=== PATIENT | female | born 1960 | race African-American/Black ===

== ENCOUNTER → 2017-04-15 | Outpatient (CLI) | payer MEDICARE, OTHER | END | disposition home or self-care (01) | LOC: RT 13:30 | DX: R56.9 Unspecified convulsions (principal) | CPT/HCPCS: 95816 ==

== ENCOUNTER → 2017-06-24 | Outpatient (CLI) | payer MEDICARE | END | disposition home or self-care (01) | LOC: KCIC 13:40 | DX: M17.11 Unilateral primary osteoarthritis, right knee (principal); G89.29 Other chronic pain | CPT/HCPCS: 73562 ==

== ENCOUNTER 2018-10-15 09:31 | Emergency (ER) | payer MEDICARE ==
[~2018-10-15] VITALS: Ht 170.2 cm; Wt 95.3 kg
[~2018-10-15 09:31] MED LIST: AMIT150T PO; AMLO10TA8 PO; ASCO500T2 PO; ATOR20TA58 PO; BISA5TAB4 PO; Bisacodyl PR; CYCL10TA2 PO; DOCU-109 PO; HYDR-3164 PO; INSU100I17 SQ; INSU100I27 SQ; INSU100V31 SQ; INSU100V8 SQ; LEVE500T56 PO; LEVO500T59 PO; LIDO700A4 TD; LISI-130 PO; LOVA40TA2 PO; METF10007 PO; ONDA4TAB7 IV; OXYC-411 PO; OXYC10TA46 PO; OXYC5TAB4 PO; SENN-80 PO; TRAZ-86 PO; WARF-31 PO; WARF2TAB96 PO
[2018-10-15 09:33] VITALS: BP 145/81
--- NOTE | 2018-10-15 10:32 | RAD ---
Indication: Fall. Right hip pain TECHNIQUE: 2 views of the right hip COMPARISON: None Findings/ impression: No acute fracture or dislocation. No significant evidence of arthritic process. Electronically signed by: Mariano Robbins DO (10/15/2018 10:29 AM) [facility]
--- NOTE | 2018-10-15 10:33 | RAD ---
Indication:Fall. Right knee pain. TECHNIQUE: 3 views of the right knee COMPARISON:None FINDINGS: No acute fracture or dislocation. No joint effusion. Moderate tricompartmental osteoarthritis. Electronically signed by: Mariano Robbins DO (10/15/2018 10:30 AM) [facility]
--- NOTE | 2018-10-15 10:53 | PHYS DOC ---
Past Medical History Past Medical History: Depression, Diabetes-Type II, Seizure, Other Additional Past Medical Histor: PULMONARY EMBOLISM, chronic back pain, "mental problems" Past Surgical History: Other Additional Past Surgical Histo: spinal fusion Alcohol Use: None Drug Use: None Adult General Chief Complaint Chief Complaint: LOWER EXT PAIN HPI HPI 57 y/o female presents to ER for complaints of right hip and right knee pain following a fall 10 days ago. Pt states she slipped and fell down approximately 12 steps 10 days ago which were carpeted. She denies any loss of consciousness or striking her head. Patient denies any head, neck, or back pain. Patient states she has had right side hip pain and right knee pain since the fall. She has been able to walk without use of cane or walker. She reports she took ibuprofen 800 mg yesterday with some improvement in pain denies any [id number] medications today. Review of Systems Review of Systems Constitutional: Denies fatigue Eyes: Denies change in visual acuity or eye pain [] HENT: Denies head/neck pain Respiratory: Denies cough or shortness of breath [] Cardiovascular: No additional information not addressed in HPI [] GI: Denies abdominal pain, nausea, vomiting : Denies urinary sxs Musculoskeletal: Denies back/neck pain. Reports rt hip/knee pain- denies inability to walk but does have increased pain with walking Integument: Denies bruising/open wounds Neurologic: Denies headache, focal weakness or sensory changes [] All other systems were reviewed and found to be within normal limits, except as documented in this note. Allergies Allergies Allergies Coded Allergies Type Severity Reaction Last Updated Verified No Known Drug Allergies 05/09/15 No Physical Exam Physical Exam Constitutional: Well developed, well nourished, no acute distress, non-toxic appearance. [] HENT: Normocephalic, atraumatic, oropharynx moist, nose normal. [] Eyes: Pupils equal, conjunctiva normal, no discharge. [] Neck: Normal range of motion, no tenderness mid line cspine, supple, no stridor. [] Cardiovascular: Heart rate regular rhythm, no murmur [] Lungs & Thorax: Bilateral breath sounds clear to auscultation- resp. equal/nonlabored Abdomen: Bowel sounds normal, soft, no tenderness Skin: Warm, dry, no erythema, no rash. [] Back: No tenderness mid line spine, no CVA tenderness. [] Extremities: Pelvis stable/nontender. No cyanosis, no clubbing, ROM intact, no edema. 2+ bilat dorsalis pedis/posterior tibial. Tender on palp. anterior rt knee with no edema/eccymosis. Tender rt lateral hip- no palp. deformity Neurologic: Alert and oriented X 3, normal motor function, normal sensory function, no focal deficits noted. [] Psychologic: Affect normal, judgement normal, mood normal. [] Current Patient Data Vital Signs Vital Signs Date Time Temp Pulse Resp B/P (MAP) Pulse Ox O2 Delivery O2 Flow Rate FiO2 10/15/18 09:33 98.1 100 16 145/81 (102) 98 Room Air 98.1 EKG EKG [] Radiology/Procedures Radiology/Procedures PROCEDURE: KNEE RIGHT 3V Indication:Fall. Right knee pain. TECHNIQUE: 3 views of the right knee COMPARISON:None FINDINGS: No acute fracture or dislocation. No joint effusion. Moderate tricompartmental osteoarthritis. Electronically signed by: Raheel Borges DO (10/15/2018 10:30 AM) [facility] DICTATED and SIGNED BY: RAHEEL BORGES DO DATE: 10/15/18 1030 PROCEDURE: HIP RIGHT 2 VIEW Indication: Fall. Right hip pain TECHNIQUE: 2 views of the right hip COMPARISON: None Findings/ impression: No acute fracture or dislocation. No significant evidence of arthritic process. Electronically signed by: Raheel Borges DO (10/15/2018 10:29 AM) [facility] DICTATED and SIGNED BY: RAHEEL BORGES DO DATE: 10/15/18 1029 Course & Med Decision Making Course & Med Decision Making Pertinent Imaging studies reviewed. (See chart for details) Patient was evaluated in the ER following a mechanical fall 10 days ago which caused right hip and right knee pain since the fall. Pt had x-rays obtained when no acute findings for fx/dislocation. Discussed x-ray results with patient and findings of degenerative osteoarthritis. Patient was placed in Lamine wrap with her reporting pain improved following wrap application. She remains PMS intact in bilateral lower extremities with steady unassisted gait. Discussed home discharge plan with orthopedic referral information BM provided on paperwork. Patient advised on need to call and schedule appointment for reevaluation and further care.Tylenol and/or ibuprofen as needed for pain. RICE acronym information will be provided on discharge paperwork. Patient provided on signs and symptoms to return to ER for and discharge instructions were discussed. Dragon Disclaimer Dragon Disclaimer This electronic medical record was generated, in whole or in part, using a voice recognition dictation system. Departure Departure Impression: Primary Impression: Knee pain, right Additional Impression: Hip pain, right Disposition: 01 HOME, SELF-CARE Condition: STABLE Referrals: NO PCP (PCP) GERI ZAMUDIO MD Patient Instructions: Fall Prevention and Home Safety, Hip Pain, Knee Pain, Knee Wraps (Elastic Bandage) and RICE Additional Instructions: Wear Lamine wrap to right knee for support to improve pain and stability while walking. If symptoms persist follow-up with an orthopedic doctor for reevaluation and further care. Tylenol and/or ibuprofen as needed for pain as directed on container. If needed use a walker or cane for stability to prevent further falls. Problem Qualifiers JON MONTES DE OCA APRN Oct 15, 2018 10:53
== END 2018-10-15 10:58 | disposition home or self-care (01) ==
LOC: ER 09:31
DX: M25.561 Pain in right knee (principal); M25.551 Pain in right hip; G89.11 Acute pain due to trauma; E11.9 Type 2 diabetes mellitus without complications; G89.29 Other chronic pain; W10.8XXA Fall (on) (from) other stairs and steps, initial encounter; Y93.89 Activity, other specified; Y92.89 Other specified places as the place of occurrence of the external cause; Y99.8 Other external cause status
CPT/HCPCS: 73502; 73562; 99284

== ENCOUNTER 2019-02-12 16:12 | Emergency (ER) | payer MEDICARE ==
[~2019-02-12] VITALS: Ht 172.7 cm; Wt 86.2 kg
--- NOTE | 2019-02-12 16:54 | RAD ---
CT HEAD WO CONTRAST Date: 02/12/2019 4:24 PM Clinical Indication: Comparison: 08/28/2014. Technique: 5 mm axial tomographic images were obtained of the head without contrast. These were viewed on brain and bone windows. One or more of the following dose reduction techniques were utilized: Automated exposure control (AEC), Adjustment of mA and/or kV according to patient size, Use of iterative reconstruction technique such as ASiR, CT scan done according to ALARA and image gently/image wisely Findings: The brain parenchyma is normal in attenuation. No intra- or extra-axial mass or fluid collection. No acute hemorrhage. The ventricles are normal in size, shape, and morphology. The schmitt-white matter junction is normal. The subarachnoid cisterns are patent. The visualized paranasal sinuses are normal. The visualized portions of the orbits and globes are normal. The mastoid air cells are clear. The summer associate topogram shows no lytic lesion or fracture. Impression: No acute intracranial process. Electronically signed by: Erwin Medrano MD (02/12/2019 4:51 PM) [facility]
[2019-02-12 17:14] LABS: BASO % 1 % (0-3); EOS # 0.1 x10^3/uL (0.0-0.7); EOS % 2 % (0-3); HEMATOCRIT 42.8 % (36.0-47.0); HEMOGLOBIN 14.3 g/dL (12.0-15.5); LYMPH # 1.4 x10^3/uL (1.0-4.8); LYMPH % 32 % (24-48); MEAN CORPUSCULAR HEMOGLOBIN 30 pg (25-35); MEAN CORPUSCULAR HGB CONC 34 g/dL (31-37); MEAN CORPUSCULAR VOLUME 90 fL (79-100); MONO # 0.4 x10^3/uL (0.0-1.1); MONO % 8 % (0-9); NEUT # 2.7 x10^3/uL (1.8-7.7); NEUT % 58 % (31-73); PLATELET COUNT 169 x10^3/uL (140-400); RED BLOOD COUNT 4.75 x10^6/uL (3.50-5.40); RED CELL DISTRIBUTION WIDTH 13.1 % (11.5-14.5); WHITE BLOOD COUNT 4.6 x10^3/uL (4.0-11.0)
[2019-02-12] MEDS: levETIRAcetam 1,000 MG in IV DEXTROSE 5% 100ML 100 ML IV ONE (17:18)
[2019-02-12] MEDS: IV NORMAL SALINE 500ML BAG 500 ML IV ONE (17:19)
[2019-02-12 17:25] LABS: CALCIUM 9.7 mg/dL (8.5-10.1); CREATININE 1.5 mg/dL (0.6-1.0); GFR 43.5; POTASSIUM 4.7 mmol/L (3.5-5.1)
--- NOTE | 2019-02-12 17:28 | PHYS DOC ---
Past Medical History Past Medical History: Depression, Diabetes-Type II, Seizure, Other Additional Past Medical Histor: PULMONARY EMBOLISM, chronic back pain, "mental problems" Past Surgical History: Other Additional Past Surgical Histo: spinal fusion Alcohol Use: None Drug Use: None Adult General Chief Complaint Chief Complaint: SEIZURE HPI HPI Patient is a 58 year old female with history of seizures, diabetes mellitus, depression and mental problem who presents via EMS with complaint of seizure. Patient states she was at [facility] and had a syncopal episode and had another syncopal episode was 1 month ago. Patient states she does not remember what happened to her today and did not eat or drink anything today. EMS reported the patient was at [facility] and had a witnessed seizure that last about 30-60 seconds without head injury. Patient later remembered that she has seizure and didn't take seizure medication for a while because of financial problems. Patient denie s smoking cigarettes and using drugs and drinking alcohol. Review of Systems Review of Systems Constitutional: Denies fever or chills [] Eyes: Denies change in visual acuity, redness, or eye pain [] HENT: Denies nasal congestion or sore throat [] Respiratory: Denies cough or shortness of breath [] Cardiovascular: No additional information not addressed in HPI [] GI: Denies abdominal pain, nausea, vomiting, bloody stools or diarrhea [] : Denies dysuria or hematuria [] Musculoskeletal: Denies back pain or joint pain [] Integument: Denies rash or skin lesions [] Neurologic: Denies headache, focal weakness or sensory changes [] Endocrine: Denies polyuria or polydipsia [] All other systems were reviewed and found to be within normal limits, except as documented in this note. Current Medications Current Medications Current Medications Medications (Trade) Dose Ordered Sig/[facility] Start Time Stop Time Status Last Admin Dose Admin Levetiracetam 1000 mg/Dextrose 110 ml @ 440 mls/hr 1X ONCE 02/12/19 17:15 02/12/19 17:29 DC 02/12/19 17:18 440 MLS/HR Sodium Chloride 500 ml @ 500 mls/hr 1X ONCE 02/12/19 17:15 02/12/19 18:14 02/12/19 17:19 500 MLS/HR Allergies Allergies Allergies Coded Allergies Type Severity Reaction Last Updated Verified No Known Drug Allergies 2/12/16 No Physical Exam Physical Exam Constitutional: Well nourished, no acute distress, non-toxic appearance. [] HENT: Normocephalic, atraumatic, bilateral external ears normal, oropharynx moist, no oral exudates, nose normal. [] Eyes: PERRLA, EOMI, conjunctiva normal, no discharge. [] Neck: Normal range of motion, no tenderness, supple, no stridor. [] Cardiovascular:Heart rate regular rhythm, no murmur [] Lungs & Thorax: Bilateral breath sounds clear to auscultation [] Abdomen: Bowel sounds normal, soft, no tenderness, no masses, no pulsatile masses. [] Skin: Warm, dry, no erythema, no rash. [] Back: No tenderness, no CVA tenderness. [] Extremities: No tenderness, no cyanosis, no clubbing, ROM intact, no edema. [] Neurologic: Alert and oriented X 2, in postictal condition, normal motor function, normal sensory function, no focal deficits noted. [] Psychologic: Affect normal, unable to evaluate Current Patient Data Vital Signs Vital Signs Date Time Temp Pulse Resp B/P (MAP) Pulse Ox O2 Delivery O2 Flow Rate FiO2 02/12/19 16:14 98.1 107 14 152/80 (104) 94 Room Air 98.1 Lab Values Laboratory Tests Test 02/12/19 16:28 02/12/19 17:00 Glucose (Fingerstick) 252 mg/dL (70-99) H White Blood Count 4.6 x10^3/uL (4.0-11.0) Red Blood Count 4.75 x10^6/uL (3.50-5.40) Hemoglobin 14.3 g/dL (12.0-15.5) Hematocrit 42.8 % (36.0-47.0) Mean Corpuscular Volume 90 fL (79-100) Mean Corpuscular Hemoglobin 30 pg (25-35) Mean Corpuscular Hemoglobin Concent 34 g/dL (31-37) Red Cell Distribution Width 13.1 % (11.5-14.5) Platelet Count 169 x10^3/uL (140-400) Neutrophils (%) (Auto) 58 % (31-73) Lymphocytes (%) (Auto) 32 % (24-48) Monocytes (%) (Auto) 8 % (0-9) Eosinophils (%) (Auto) 2 % (0-3) Basophils (%) (Auto) 1 % (0-3) Neutrophils # (Auto) 2.7 x10^3/uL (1.8-7.7) Lymphocytes # (Auto) 1.4 x10^3/uL (1.0-4.8) Monocytes # (Auto) 0.4 x10^3/uL (0.0-1.1) Eosinophils # (Auto) 0.1 x10^3/uL (0.0-0.7) Basophils # (Auto) 0.0 x10^3/uL (0.0-0.2) Sodium Level 138 mmol/L (136-145) Potassium Level 4.7 mmol/L (3.5-5.1) Chloride Level 99 mmol/L (98-107) Carbon Dioxide Level 27 mmol/L (21-32) Anion Gap 12 (6-14) Blood Urea Nitrogen 17 mg/dL (7-20) Creatinine 1.5 mg/dL (0.6-1.0) H Estimated GFR (Cockcroft-Gault) 43.5 BUN/Creatinine Ratio 11 (6-20) Glucose Level 265 mg/dL (70-99) H Calcium Level 9.7 mg/dL (8.5-10.1) Total Bilirubin 0.3 mg/dL (0.2-1.0) Aspartate Amino Transferase (AST) 15 U/L (15-37) Alanine Aminotransferase (ALT) 22 U/L (14-59) Alkaline Phosphatase 71 U/L (46-116) Total Protein 8.3 g/dL (6.4-8.2) H Albumin 3.9 g/dL (3.4-5.0) Albumin/Globulin Ratio 0.9 (1.0-1.7) L Laboratory Tests 02/12/19 17:00 Laboratory Tests 02/12/19 17:00 EKG EKG EKG interpreted by me. EKG at 1628 showed sinus tachycardia at rate of 105,leftward axis, LVH, no acute ST and T-wave elevation. Radiology/Procedures Radiology/Procedures [][facility] [address] [place], [place] [id number] IMAGING REPORT Signed PATIENT: CADENCE CHO ACCOUNT: [id number] : 1960 LOCATION: ER AGE: 58 SEX: F EXAM STATUS: REG ER ORD. PHYSICIAN: CARLENE QUINTERO MD REASON: seizure and fall PROCEDURE: CT HEAD WO CONTRAST CT HEAD WO CONTRAST Date: 02/12/2019 4:24 PM Clinical Indication: Comparison: 08/28/2014. Technique: 5 mm axial tomographic images were obtained of the head without contrast. These were viewed on brain and bone windows. One or more of the following dose reduction techniques were utilized: Automated exposure control (AEC), Adjustment of mA and/or kV according to patient size, Use of iterative reconstruction technique such as ASiR, CT scan done according to ALARA and image gently/image wisely Findings: The brain parenchyma is normal in attenuation. No intra- or extra-axial mass or fluid collection. No acute hemorrhage. The ventricles are normal in size, shape, and morphology. The schmitt-white matter junction is normal. The subarachnoid cisterns are patent. The visualized paranasal sinuses are normal. The visualized portions of the orbits and globes are normal. The mastoid air cells are clear. The wood veneer taper topogram shows no lytic lesion or fracture. Impression: No acute intracranial process. Electronically signed by: Tray Medrano MD (02/12/2019 4:51 PM) [facility] DICTATED and SIGNED BY: TRAY MEDRANO MD DATE: 02/12/19 165 Course & Med Decision Making Course & Med Decision Making Pertinent Labs and Imaging studies reviewed. (See chart for details) Evaluation of patient in ER showed 58-year-old female patient with history of noncompliance with seizure treatment is in by EMS because of seizure. Patient was in postictal condition and gradually became alert and oriented. Patient had unremarkable exam and labs except for elevation of blood sugar and crusty. Patient treated with IV Keppra prescription for Keppra was given and was advised to follow-up with her physician. I've spoken with the patient and/or caregivers. I've explained the patient's condition, diagnosis and treatment plan based on information available to me at this time. I've answered the patient's and/or caregivers questions and addressed any concerns. The patient and/or caregivers have a good understanding the patient's diagnosis, condition and treatment plan as can be expected at this point. Vital signs have been stabilized. The patient's condition is stable for discharge from the emergency department. The patient will pursue further outpatient evaluation with her primary care provider or other designated consulting physician as outlined in the discharge instructions. Patient and/or caregivers are agreeable to this plan of care and follow-up instructions have been explained in detail. The patient and/or caregivers have received these instructions in written format and expressed understanding of these discharge instructions. The patient and her caregivers are aware that if any significant change in condition or worsening of symptoms should prompt him to immediately return to this of the closest emergency department. If an emergent department is not readily available I would encourage him to call 911. Dragon Disclaimer Dragon Disclaimer This electronic medical record was generated, in whole or in part, using a voice recognition dictation system. Departure Departure Impression: Primary Impression: Seizure Additional Impressions: Noncompliance Uncontrolled diabetes mellitus Elevated serum creatinine Disposition: HOME, SELF-CARE Condition: IMPROVED Referrals: NO PCP (PCP) Patient Instructions: Seizure, Adult Additional Instructions: Drink plenty of liquids Follow-up with your primary care physician in 2-3 days guarding seizure treatment Return to ER if not getting better Scripts Levetiracetam (KEPPRA) 500 Mg Tablet 1 TAB PO BID for 30 Days, #60 TAB 0 Refills Prov: CARLENE QUINTERO MD 02/12/19 Problem Qualifiers Additional Impressions: Uncontrolled diabetes mellitus Diabetes mellitus type: other specified (including MAG) Glycemic state: w ith hyperglycemia Qualified Codes: E13.65 - Other specified diabetes mellitus with hyperglycemia CARLENE QUINTERO MD Feb 12, 2019 17:28
[2019-02-12 17:30] LABS: ALBUMIN 3.9 g/dL (3.4-5.0); ALBUMIN/GLOBULIN RATIO 0.9 (1.0-1.7); TOTAL BILIRUBIN 0.3 mg/dL (0.2-1.0); TOTAL PROTEIN 8.3 g/dL (6.4-8.2)
[2019-02-12 17:58] VITALS: BP 156/81
[2019-02-12] MEDS ORDERED: LEVE500T56 PO (18:02)
== END 2019-02-12 18:38 | disposition home or self-care (01) ==
LOC: ER 16:12
DX: R56.9 Unspecified convulsions (principal); Z91.19 Patient's noncompliance with other medical treatment and regimen; E11.65 Type 2 diabetes mellitus with hyperglycemia; R79.89 Other specified abnormal findings of blood chemistry; G89.29 Other chronic pain; Z98.1 Arthrodesis status
CPT/HCPCS: 36415; 70450; 80053; 82962; 85025; 96365; 99285; J1953; J7040

== ENCOUNTER 2019-08-06 21:01 | Emergency (ER) | payer MEDICARE ==
[~2019-08-06] VITALS: Ht 170.2 cm; Wt 81.8 kg
[~2019-08-06 21:01] MED LIST changes: -ASCO500T2 PO; +ASCO500T4 PO; +SENN-182 PO; -SENN-80 PO; +TRAZ-123 PO; -TRAZ-86 PO
[2019-08-06] MEDS ORDERED: fentaNYL PF VIAL 100 MCG/2 ML VIAL IV PRN (21:30)
[2019-08-06] MEDS ORDERED: IV NORMAL SALINE 1000ML BAG 1,000 ML IV SCH (21:30)
[2019-08-06 21:38] LABS: BASO # 0.1 x10^3/uL (0.0-0.2); BASO % 1 % (0-3); EOS % 0 % (0-3); HEMATOCRIT 43.1 % (36.0-47.0); HEMOGLOBIN 14.7 g/dL (12.0-15.5); LYMPH # 0.9 x10^3/uL (1.0-4.8); LYMPH % 9 % (24-48); MEAN CORPUSCULAR HEMOGLOBIN 30 pg (25-35); MEAN CORPUSCULAR HGB CONC 34 g/dL (31-37); MEAN CORPUSCULAR VOLUME 89 fL (79-100); MONO # 0.5 x10^3/uL (0.0-1.1); MONO % 5 % (0-9); NEUT # 8.5 x10^3/uL (1.8-7.7); NEUT % 86 % (31-73); PLATELET COUNT 190 x10^3/uL (140-400); RED BLOOD COUNT 4.84 x10^6/uL (3.50-5.40); RED CELL DISTRIBUTION WIDTH 12.8 % (11.5-14.5); WHITE BLOOD COUNT 9.9 x10^3/uL (4.0-11.0)
[2019-08-06 21:46] LABS: CALCIUM 9.8 mg/dL (8.5-10.1); CREATININE 0.9 mg/dL (0.6-1.0); GFR 78.4; POTASSIUM 4.6 mmol/L (3.5-5.1)
--- NOTE | 2019-08-06 21:49 | PHYS DOC ---
Past Medical History Past Medical History: Depression, Diabetes-Type II, Seizure, Other Additional Past Medical Histor: PULMONARY EMBOLISM, chronic back pain, "mental problems" Past Surgical History: Other Additional Past Surgical Histo: spinal fusion Smoking Status: Never Smoker Alcohol Use: None Drug Use: None General Adult EDM: Chief Complaint: ABDOMINAL PAIN HPI: HPI: Patient is a 58 year old female who presents via EMS with report of upper abdominal and back pain that started earlier today. Patient rates pain at a 10 out of 10. She states that she has had nausea and vomiting but states that that has been going on for about a week now. She denies any diarrhea. Patient states that pain is worsened with palpation. She states that nothing improves the pain. Patient is not aware of any fever. [] Review of Systems: Review of Systems: Constitutional: Denies fever or chills. [] Respiratory: Denies cough or shortness of breath. [] Cardiovascular: Denies chest pain or edema. [] GI: Complains of abdominal pain with nausea and vomiting. Denies diarrhea. [] Musculoskeletal: Complains of back pain. [] Neurologic: Denies headache, focal weakness or sensory changes. [] A full 10 point review of systems has been reviewed and is otherwise negative. Heart Score: Risk Factors: Risk Factors: DM, Current or recent (<one month) smoker, HTN, HLP, family history of CAD, obesity. Risk Scores: Score 0 - 3: 2.5% MACE over next 6 weeks - Discharge Home Score 4 - 6: 20.3% MACE over next 6 weeks - Admit for Clinical Observation Score 7 - 10: 72.7% MACE over next 6 weeks - Early Invasive Strategies Current Medications: Current Medications Medications (Trade) Dose Ordered Sig/[facility] Start Time Stop Time Status Last Admin Dose Admin Fentanyl Citrate (Fentanyl 2ml Vial) 50 mcg PRN Q15MIN PRN 08/06/19 21:30 08/07/19 21:29 Ondansetron HCl (Zofran) 4 mg 1X ONCE 08/06/19 22:00 08/06/19 22:01 Sodium Chloride 1,000 ml @ 1,000 mls/hr Q1H 08/06/19 21:30 08/06/19 22:29 Allergies: Allergies: Allergies Coded Allergies Type Severity Reaction Last Updated Verified No Known Drug Allergies 05/09/15 No Physical Exam: PE: Constitutional: Well developed, well nourished, no acute distress, non-toxic appearance. [] HENT: Normocephalic, atraumatic, bilateral external ears normal, oropharynx moist, no oral exudates, nose normal. [] Eyes: PERRLA, EOMI, conjunctiva normal, no discharge. [] Neck: Normal range of motion, no tenderness, supple, no stridor. [] Cardiovascular: Regular rate and rhythm [] Lungs & Thorax: Bilateral breath sounds clear to auscultation [] Abdomen: Bowel sounds normal, soft, with moderate upper abdominal tenderness, g reatest in the right upper quadrant. [] Skin: Warm, dry, no erythema, no rash. [] Extremities: No tenderness, no cyanosis, no clubbing, ROM intact. [] Neurologic: Alert and oriented X 3, no focal deficits noted. [] EKG: EKG: [] Radiology/Procedures: Radiology/Procedures: [] Impression: PROCEDURE: ABDOMEN LTD Clinical History: Upper abdominal pain Technique: Sonographic examination of the right upper quadrant of the abdomen was performed and multiple static images were obtained. Comparison: none Findings: The majority of the liver is visualized and appears homogeneous. The common bile duct appears normal and measures 3 mm in diameter. The gallbladder is distended and there is stones. There is minimal surrounding fluid and there is mild wall thickening of 2.2 mm. There is no tenderness detected. The pancreas is not well visualized due to overlying bowel gas. The right kidney appears normal and measures 10 cm in length. Impression: 1. Cholecystolithiasis. 2. Distention of the gallbladder and minimal surrounding fluid and minimal wall thickening suggests acute cholecystitis. Electronically signed by: Fer Samuel III, MD (08/07/2019 12:26 AM) [id number] PROCEDURE: CHEST AP ONLY CHEST AP ONLY Clinical History: Fever, abnormal CT Technique: AP view of the chest was obtained at 08/06/2019 11:11 PM. Comparison: None. Findings: The cardiomediastinal silhouette is normal. The pulmonary vasculature is normal. There is a few linear and reticular opacities in the lower lungs. Impression: Mild bilateral infiltrates could be discoid atelectasis or early pneumonia. Electronically signed by: Fer Samuel III, MD (08/06/2019 11:33 PM) [id number] Course & Med Decision Making: Course & Med Decision Making Pertinent Labs and Imaging studies reviewed. (See chart for details) [] Dragon Disclaimer: Dragon Disclaimer: This electronic medical record was generated, in whole or in part, using a voice recognition dictation system. Departure Departure Impression: Primary Impression: Cholecystolithiasis Qualified Codes: K80.00 - Calculus of gallbladder with acute cholecystitis without obstruction Disposition: 07 AGAINST MEDICAL ADVICE Condition: IMPROVED Referrals: NO PCP (PCP) DENNIS GOMEZ Jr. DO August 06, 2019 21:49
[2019-08-06 21:52] LABS: ALBUMIN 4.5 g/dL (3.4-5.0); ALBUMIN/GLOBULIN RATIO 0.9 (1.0-1.7); TOTAL BILIRUBIN 0.4 mg/dL (0.2-1.0); TOTAL PROTEIN 9.6 g/dL (6.4-8.2)
[2019-08-06] MEDS ORDERED: ONDANSETRON PF 4 MG/2 ML VIAL. IVP ONE (22:00)
[2019-08-06] MEDS ORDERED: CONTRAST GIVEN. MC PRN (22:15)
[2019-08-06 22:30] LABS: % BANDS 8 % (0-9); % BASOS 1 % (0-3); % LYMPHS 14 % (24-48); % MONOS 1 % (0-10); % SEGS 76 % (35-66); PLT ESTIMATE ADEQUATE (ADEQUATE)
[2019-08-06] MEDS ORDERED: ACETAMINOPHEN 500 MG TABLET PO ONE (22:30)
[2019-08-06] MEDS ORDERED: IOHEXOL 300 MG/ML 100ML VIAL. IV ONE (22:30)
--- NOTE | 2019-08-06 23:07 | RAD ---
INDICATION: Abdomen pain COMPARISON: April 2015 TECHNIQUE: Axial CT images obtained through the abdomen and pelvis with contrast. One or more of the following individualized dose reduction techniques were utilized for this examination: 1. Automated exposure control; 2. Adjustment of the mA and/or kV according to patient size; 3. Use of iterative reconstruction technique. FINDINGS: Mild patchy opacities at the lung bases with linear and groundglass component. Scattered mild calcific atherosclerosis. Fat-containing left inguinal hernia. Gallbladder is dilated measuring greater than 10 cm anterior to posterior. No peripancreatic fluid collection. Spleen unremarkable. Urinary bladder is distended at time of exam. No significant hydronephrosis. There is some subcutaneous stranding to the fat at the anterior abdominal wall. Colonic diverticulosis. Cecum is folded medially with the appendix not well seen. There are some mild haziness to the fat anterior to the urinary bladder. Degenerative changes the spine with multilevel central canal and neural foraminal stenosis. Degenerative changes of the hips. There is some sclerosis at the left iliac bone with deformity in the region which could be postoperative. Pedicle screws at L4 and L5 status post posterior fusion. Partial fusion of the T9-T10 vertebral bodies with kyphosis. IMPRESSION: * The gallbladder is dilated. Would correlate with symptoms within the region since causes such as hydrops can have this appearance. It may be helpful to obtain an ultrasound to further evaluate for associated gallstones or gallbladder wall thickening to ensure that there is not a cholecystitis contributing. * Patchy opacities at lung bases could be secondary to atelectasis but early infiltrate is not excluded. * Urinary bladder is distended at the time of exam with small region of haziness to the adjacent fat. Would correlate with symptoms in the region to ensure that there is no pathologic cause such as cystitis contributing. This distention could be from the patient not urinating recently unless they're having symptoms of bladder outlet obstruction. Electronically signed by: John Ladd MD (08/06/2019 11:04 PM) [id number]
--- NOTE | 2019-08-06 23:36 | RAD ---
CHEST AP ONLY Clinical History: Fever, abnormal CT Technique: AP view of the chest was obtained at 08/06/2019 11:11 PM. Comparison: None. Findings: The cardiomediastinal silhouette is normal. The pulmonary vasculature is normal. There is a few linear and reticular opacities in the lower lungs. Impression: Mild bilateral infiltrates could be discoid atelectasis or early pneumonia. Electronically signed by: Fer Samuel III, MD (08/06/2019 11:33 PM) [id number]
[2019-08-06 23:42] LABS: BILIRUBIN,URINE NEGATIVE (NEG); CLARITY,URINE CLEAR; COLOR,URINE YELLOW; PH,URINE 7.5 (<5.0-8.0); PROTEIN,URINE 30 mg/dL (NEG-TRACE); UROBILINOGEN,URINE 0.2 mg/dL (0.2 mg/dL)
[2019-08-06 23:43] LABS: NITRITE,URINE NEGATIVE (NEG)
[2019-08-06 23:46] LABS: BACTERIA,URINE 0 /HPF (0-FEW); SQUAMOUS EPITHELIAL CELL,UR MOD /LPF
[2019-08-07] MEDS ORDERED: IV NORMAL SALINE 1000ML BAG 1,000 ML IV ONE
--- NOTE | 2019-08-07 00:29 | RAD ---
Clinical History: Upper abdominal pain Technique: Sonographic examination of the right upper quadrant of the abdomen was performed and multiple static images were obtained. Comparison: none Findings: The majority of the liver is visualized and appears homogeneous. The common bile duct appears normal and measures 3 mm in diameter. The gallbladder is distended and there is stones. There is minimal surrounding fluid and there is mild wall thickening of 2.2 mm. There is no tenderness detected. The pancreas is not well visualized due to overlying bowel gas. The right kidney appears normal and measures 10 cm in length. Impression: 1. Cholecystolithiasis. 2. Distention of the gallbladder and minimal surrounding fluid and minimal wall thickening suggests acute cholecystitis. Electronically signed by: Fer Samuel III, MD (08/07/2019 12:26 AM) [id number]
[2019-08-07] MEDS ORDERED: PIPERACILLIN/TAZOBACTAM 3.375 GM in IV NORMAL SALINE 50ML 50 ML IV ONE (01:30)
[2019-08-07 02:00] VITALS: BP 142/70
== END 2019-08-07 02:15 | disposition left against medical advice (07) ==
LOC: ER 21:01
DX: K80.00 Calculus of gallbladder with acute cholecystitis without obstruction (principal); R11.2 Nausea with vomiting, unspecified; R10.11 Right upper quadrant pain; M54.5 Low back pain; E11.9 Type 2 diabetes mellitus without complications; F32.9 Major depressive disorder, single episode, unspecified; G89.29 Other chronic pain; Z98.890 Other specified postprocedural states
CPT/HCPCS: 36415; 71045; 74177; 76705; 80053; 81001; 83690; 85007; 85025; 87635; 96361; 96365; 96375; 99285; J2405; J2543; J3010; J7030; Q9967

== ENCOUNTER 2021-01-28 09:41 | Emergency (ER) | payer MEDICARE ==
[~2021-01-28] VITALS: Ht 170.2 cm; Wt 81.8 kg
[~2021-01-28 09:41] MED LIST changes: +AMLO-187 PO; -AMLO10TA8 PO; +CYCL10TA19 PO; -CYCL10TA2 PO; -OXYC-411 PO; +OXYC1TAB20 PO
--- NOTE | 2021-01-28 10:38 | RAD ---
Left hip 2 views with one view pelvis. HISTORY: History left hip pain after a fall Single view was taken of the pelvis. Pelvis is made with a right hip film from September 2018. Pelvis appe ars intact without acute fracture. Patient previous lumbar fusion. There is no acute right hip fractu re. There is mild arthritis in the right hip. AP and lateral views were taken of the left hip. There is spurring on the left femoral head from arth ritis. There is no acute fracture. There is no other acute osseous abnormality. IMPRESSION: 1. No pelvic fracture noted. 2. Arthritis left hip. 3. No acute left hip fracture. Electronically signed by: Wero Dixon MD (01/28/2021 10:36 AM) [id number]
[2021-01-28] MEDS ORDERED: HYDR-2761 PO (10:53)
[2021-01-28] MEDS ORDERED: CYCL5TAB PO (10:53)
--- NOTE | 2021-01-28 10:55 | PHYS DOC ---
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 She states she did not seek medical care when this happened. States she has been taking [id number] pain medications but is not really helping. She states she discussed make sure nothing is broken. She is weightbearing. She rates her pain at a 7 out of 10 when up and moving. Patient denies focal weakness, numbness or tingling, swelling, bruising, blood thinners, loss of bowel or bladder. Patient has a history of diabetes, depression, seizure, PE, chronic back pain, spinal fusion. 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 [] Eyes: Denies change in visual acuity. [] HENT: Denies nasal congestion or sore throat. [] Respiratory: Denies cough or shortness of breath. [] Cardiovascular: Denies chest pain or edema. [] GI: Denies abdominal pain, nausea, vomiting, bloody stools or diarrhea. [] : Denies dysuria. [] Musculoskeletal: + Left lower back pain or + left hip joint pain. [] Integument: Denies rash. [] Neurologic: Denies headache, focal weakness or sensory changes. [] Endocrine: Denies polyuria or polydipsia. [] Lymphatic: Denies swollen glands. [] Psychiatric: Denies depression or anxiety. [] (EM [employer] ANALYST) Heart Score: C/O Chest Pain: No (EM HEATH APRN) Allergies: Allergies: Allergies Coded Allergies Type Severity Reaction Last Updated Verified No Known Drug Allergies 05/09/15 No (EM HEATH APRN) Physical Exam: PE: Constitutional: Well developed, well nourished, no acute distress, non-toxic appearance. [] HENT: Normocephalic, atraumatic, bilateral external ears normal, oropharynx moist, no oral exudates, nose normal. [] Eyes: PERRLA, EOMI, conjunctiva normal, no discharge. [] Neck: Normal range of motion, no tenderness, supple, no stridor. [] Cardiovascular:Heart rate regular rhythm, no murmur [] Lungs & Thorax: Bilateral breath sounds clear to auscultation [] Abdomen: Bowel sounds normal, soft, no tenderness, no masses, no pulsatile masses. [] Skin: Warm, dry, no erythema, no rash. [] Back: Left lower tenderness, no CVA tenderness. [] Extremities: Lateral to posterior hip tenderness, no cyanosis, no clubbing, ROM intact, no edema. [] Neurologic: Alert and oriented X 3, normal motor function, normal sensory function, no focal deficits noted. [] Psychologic: Affect normal, judgement normal, mood normal. [] (EM HEATH APRN) Current Patient Data: Labs: Laboratory Tests Test 01/28/21 09:57 POC Urine HCG, Qualitative Hcg negative (Negative) Vital Signs: Vital Signs Date Time Temp Pulse Resp B/P (MAP) Pulse Ox O2 Delivery O2 Flow Rate FiO2 01/28/21 09:56 98.5 98 21 153/91 (111) 99 98.5 (EM HEATH APRN) EKG: EKG: [] (EM HEATH APRN) Radiology/Procedures: Radiology/Procedures: [] Impression: [facility] [address] [place], [place] [id number] IMAGING REPORT Signed PATIENT: CADENCE CHO ACCOUNT: [id number] : 1960 LOCATION: ER AGE: 60 SEX: F EXAM STATUS: PRE ER ORD. PHYSICIAN: EM HEATH APRN REASON: left posterior hip pain after afall PROCEDURE: HIP LEFT 2V WITH PELVIS Left hip 2 views with one view pelvis. HISTORY: History left hip pain after a fall Single view was taken of the pelvis. Pelvis is made with a right hip film from September 2018. Pelvis appears intact without acute fracture. Patient previous lumbar fusion. There is no acute right hip fracture. There is mild arthritis in the right hip. AP and lateral views were taken of the left hip. There is spurring on the left femoral head from arthritis. There is no acute fracture. There is no other acute osseous abnormality. IMPRESSION: 1. No pelvic fracture noted. 2. Arthritis left hip. 3. No acute left hip fracture. Electronically signed by: Wero Dixon MD (01/28/2021 10:36 AM) [id number] DICTATED and SIGNED BY: WERO DIXON MD DATE: 01/28/21 [id number] (EM HEATH APRN) Course & Med Decision Making: Course & Med Decision Making Pertinent Labs and Imaging studies reviewed. (See chart for details) See HPI. Alert and oriented x4. Ambulatory with steady gait. Speaks in full clear sentences. Full range of motion at the hip. There is no bruising or swelling or deformity. No joint laxity. No saddle paresthesia. Skin pink warm and dry. Cap refill less than 2 seconds. Popliteal pulse strong present. Tenderness at the left lateral hip and posterior hip area. Does not radiate. Sensations and neurologically intact. No numbness or tingling. [] (EM HEATH APRN) Dragon Disclaimer: Sal Disclaimer: This electronic medical record was generated, in whole or in part, using a voice recognition dictation system. (EM HEATH APRN) Departure Departure Impression: Primary Impression: Hip pain, left Disposition: HOME / SELF CARE / HOMELESS Condition: STABLE Referrals: NO PCP (PCP) ORTIZ GOEL DO Patient Instructions: Contusion, Hip Injury, Hip Pain Additional Instructions: Follow-up with your primary care provider. Use a heating pad. Take medication as prescribed and with food. Remember these medications make you sleepy so do n ot drink alcohol or drive while on this medication. Scripts Hydrocodone Bit/Acetaminophen (HYDROCODONE-APAP 5-325 ) 1 Tab Tablet 1 TAB PO PRN Q6HRS PRN for PAIN, #10 TAB 0 Refills Prov: EM HEATH APRN 01/28/21 Cyclobenzaprine Hcl (CYCLOBENZAPRINE HCL) 5 Mg Tablet 1 TAB PO TID, #30 TAB Prov: EM HEATH APRN 01/28/21 Attending Signature I have participated in the care of this patient and I have reviewed and agree with all pertinent clinical information above including history, exam, and recommendations. (BENY CAMEJO DO) EM HEATH APRN Jan 28, 2021 10:55 BENY CAMEJO DO Jan 28, 2021 13:13
[2021-01-28 11:15] VITALS: BP 146/78
== END 2021-01-28 11:36 | disposition home or self-care (01) ==
LOC: ER 09:41
DX: M25.552 Pain in left hip (principal); G89.29 Other chronic pain; G89.11 Acute pain due to trauma; E11.9 Type 2 diabetes mellitus without complications; W10.8XXA Fall (on) (from) other stairs and steps, initial encounter; Y93.89 Activity, other specified; Y92.89 Other specified places as the place of occurrence of the external cause; Y99.8 Other external cause status
CPT/HCPCS: 73502; 81025; 99283

== ENCOUNTER 2021-08-10 09:42 | Emergency (ER) | payer MEDICARE ==
[~2021-08-10] VITALS: Ht 170.2 cm; Wt 87.5 kg
[~2021-08-10 09:42] MED LIST changes: +CYCL5TAB PO; +HYDR-2761 PO
[2021-08-10 10:05] VITALS: BP 169/86
--- NOTE | 2021-08-10 10:45 | RAD ---
AP, oblique, and lateral views of the left knee were obtained. Indication: Knee trauma with pain Comparison: none. Findings: No fracture or dislocation. There is moderate tricompartmental degenerative change and osteophyte for mation. There is also calcification of the medial and lateral menisci consistent with CPPD. Small sup rapatellar joint effusion is seen. Electronically signed by: Yaakov Wayne MD (08/10/2021 10:42 AM) [id number]
[2021-08-10] MEDS ORDERED: MELO7.5T5 PO (10:48)
--- NOTE | 2021-08-10 10:53 | PHYS DOC ---
Past Medical History Past Medical History: Depression, Diabetes-Type II, Seizure, Other Additional Past Medical Histor: PULMONARY EMBOLISM, chronic back pain, "mental problems" Past Surgical History: Other Additional Past Surgical Histo: spinal fusion Smoking Status: Never Smoker Alcohol Use: None Drug Use: None General Adult EDM: Chief Complaint: KNEE INJURY HPI: HPI: Patient is a 60 year old female presents with left knee pain after falling. Patient states she was on a ladder trying to hang things up when she fell and hit her left knee. Patient states she did not strike any other part of her body, she states that she was up most of the night with knee pain. Patient states she feels fine otherwise. No other symptoms. Review of Systems: Review of Systems: Constitutional: Denies fever or chills. [] Eyes: Denies change in visual acuity. [] HENT: Denies nasal congestion or sore throat. [] Respiratory: Denies cough or shortness of breath. [] Cardiovascular: Denies chest pain or edema. [] GI: Denies abdominal pain, nausea, vomiting, bloody stools or diarrhea. [] : Denies dysuria. [] Musculoskeletal: Denies back pain positive left knee pain [] Integument: Denies rash. [] Neurologic: Denies headache, focal weakness or sensory changes. [] Endocrine: Denies polyuria or polydipsia. [] Lymphatic: Denies swollen glands. [] Psychiatric: Denies depression or anxiety. [] Heart Score: C/O Chest Pain: No Risk Factors: Risk Factors: DM, Current or recent (<one month) smoker, HTN, HLP, family history of CAD, obesity. Risk Scores: Score 0 - 3: 2.5% MACE over next 6 weeks - Discharge Home Score 4 - 6: 20.3% MACE over next 6 weeks - Admit for Clinical Observation Score 7 - 10: 72.7% MACE over next 6 weeks - Early Invasive Strategies Current Medications: Current Medications Medications (Trade) Dose Ordered Sig/Gisselle Start Time Stop Time Status Last Admin Dose Admin Acetaminophen/ Hydrocodone Bitart (Lortab 5/325) 1 tab 1X ONCE 08/10/21 11:00 08/10/21 11:01 Allergies: Allergies: Allergies Coded Allergies Type Severity Reaction Last Updated Verified No Known Drug Allergies 05/09/15 No Physical Exam: PE: Constitutional: Well developed, well nourished, no acute distress, non-toxic appearance. [] HENT: Normocephalic, atraumatic, bilateral external ears normal, oropharynx moist, no oral exudates, nose normal. [] Eyes: PERRLA, EOMI, conjunctiva normal, no discharge. [] Neck: Normal range of motion, no tenderness, supple, no stridor. [] Cardiovascular:Heart rate regular rhythm, no murmur [] Lungs & Thorax: Bilateral breath sounds clear to auscultation [] Abdomen: Bowel sounds normal, soft, no tenderness, no masses, no pulsatile masses. [] Skin: Warm, dry, no erythema, no rash. [] Back: No tenderness, no CVA tenderness. [] Extremities: Tenderness to palpation about 2 cm above the left patella anteriorly, no ecchymosis, no deformity, no severe tenderness. Ambulation is normal. [] Neurologic: Alert and oriented X 3, normal motor function, normal sensory function, no focal deficits noted. [] Psychologic: Affect normal, judgement normal, mood normal. [] Current Patient Data: Vital Signs: Vital Signs Date Time Temp Pulse Resp B/P (MAP) Pulse Ox O2 Delivery O2 Flow Rate FiO2 08/10/21 10:05 99.0 104 18 169/86 (113) 96 Room Air 99.0 EKG: EKG: [] Radiology/Procedures: Radiology/Procedures: X-ray without acute fracture moderate osteoarthritis Impression: Left knee contusion Course & Med Decision Making: Course & Med Decision Making Pertinent Labs and Imaging studies reviewed. (See chart for details) 60-year-old female seen and examined by myself, x-ray ordered. Trauma was minor, no head trauma. Patient states that her leg has been hurting. Patient hemodynamically stable. Reviewed findings with the patient. Patient discharged in normal condition. Patient was given 1 hydrocodone acetaminophen, 5 mg. She was monitored prior to discharge. She was not driving home. Patient agreed with the plan of action, all questions answered, ER precautions given. Dragon Disclaimer: Sal Disclaimer: This electronic medical record was generated, in whole or in part, using a voice recognition dictation system. Departure Departure Impression: Primary Impression: Left anterior knee pain Disposition: HOME / SELF CARE / HOMELESS Condition: GOOD Patient Instructions: Contusion, [id number] Additional Instructions: You may follow-up with your primary care physician if you need refills of medica tion, you can take the medication I have prescribed for you for pain. You may return to the emergency department if you are feeling severe or worsening symptoms Scripts Meloxicam (MOBIC) 7.5 Mg Tablet 7.5 MG PO DAILY PRN for PAIN for 14 Days, #14 TAB Prov: DJEAH GIL MD 08/10/21 DEJAH GIL MD August 10, 2021 10:53
[2021-08-10] MEDS ORDERED: HYDROcodone/APAP 5/325MG 1 TAB TABLET PO ONE (11:00)
== END 2021-08-10 11:21 | disposition home or self-care (01) ==
LOC: ER 09:42
DX: M25.562 Pain in left knee (principal); E11.9 Type 2 diabetes mellitus without complications; Z86.711 Personal history of pulmonary embolism; W11.XXXA Fall on and from ladder, initial encounter; Y93.89 Activity, other specified; Y92.89 Other specified places as the place of occurrence of the external cause; Y99.8 Other external cause status
CPT/HCPCS: 73562; 99283